=== PATIENT | female | born 1950 | race Caucasian/White ===

== ENCOUNTER 2017-09-26 21:40 | Emergency (ER) | payer MEDICARE ==
[2017-09-26] MEDS ORDERED: GLUCAGON,HUMAN RECOMBINANT 1 MG/ML VIAL. ×2 (21:50)
[2017-09-26] MEDS ORDERED: DEXTROSE 50% 25 GM / 50ML DISP.SYRIN. IV ×2 (21:51)
[2017-09-26 22:04] LABS: ADD MAN DIFF? NO
[2017-09-26 22:06] LABS: BASO % 0 % (0-3); EOS # 0.3 x10^3/uL (0.0-0.7); EOS % 3 % (0-3); HEMATOCRIT 40.9 % (36.0-47.0); HEMOGLOBIN 13.6 g/dL (12.0-15.5); LYMPH # 2.4 x10^3/uL (1.0-4.8); LYMPH % 22 % (24-48); MEAN CORPUSCULAR HEMOGLOBIN 30 pg (25-35); MEAN CORPUSCULAR HGB CONC 33 g/dL (31-37); MEAN CORPUSCULAR VOLUME 90 fL (79-100); MONO # 0.9 x10^3/uL (0.0-1.1); MONO % 8 % (0-9); NEUT # 7.2 x10^3uL (1.8-7.7); NEUT % 67 % (31-73); PLATELET COUNT 221 x10^3/uL (140-400); RED BLOOD COUNT 4.52 x10^6/uL (3.50-5.40); RED CELL DISTRIBUTION WIDTH 16.3 % (11.5-14.5); WHITE BLOOD COUNT 10.8 x10^3/uL (4.0-11.0)
[2017-09-26] MEDS: IV DEXTROSE 5% - 0.9 % NACL 1,000 ML IV ×2 (22:12)
[2017-09-26 22:15] LABS: ANION GAP 11 (6-14); BLOOD UREA NITROGEN 22 mg/dL (7-20); BUN/CREATININE RATIO 15 (6-20); CALCIUM 8.7 mg/dL (8.5-10.1); CARBON DIOXIDE 25 mmol/L (21-32); CHLORIDE 108 mmol/L (98-107); CREATININE 1.5 mg/dL (0.6-1.0); GFR 34.4; GLUCOSE 166 mg/dL (70-99); SODIUM 144 mmol/L (136-145)
[2017-09-26 22:20] LABS: ALBUMIN 2.5 g/dL (3.4-5.0); ALBUMIN/GLOBULIN RATIO 0.6 (1.0-1.7); ALK PHOS 100 U/L (46-116); ALT (SGPT) 26 U/L (14-59); AST (SGOT) 27 U/L (15-37); MAGNESIUM 2.3 mg/dL (1.8-2.4); TOTAL BILIRUBIN 0.2 mg/dL (0.2-1.0); TOTAL PROTEIN 6.4 g/dL (6.4-8.2)
[2017-09-26] MEDS: POTASSIUM CHLORIDE 20 MEQ TABLET.ER. PO ×2 (22:42)
[2017-09-26 22:48] LABS: POC GLUCOSE 189 mg/dL (70-99)
[2017-09-26 22:49] LABS: POC GLUCOSE 23 mg/dL (70-99)
== END 2017-09-26 23:19 | disposition home or self-care (01) ==
LOC: ER 21:40
DX: E11.649 Type 2 diabetes mellitus with hypoglycemia without coma (principal); R41.82 Altered mental status, unspecified; E87.6 Hypokalemia; I11.9 Hypertensive heart disease without heart failure; E78.00 Pure hypercholesterolemia, unspecified; Z95.1 Presence of aortocoronary bypass graft; Z98.51 Tubal ligation status
CPT/HCPCS: 36415; 80053; 82962; 83735; 85025; 96360; 99284-25; J7042

== ENCOUNTER → 2019-05-24 | Outpatient (CLI) | payer MEDICARE ==
[2017-09-26 22:40] VITALS: BP 189/90
[~2019-05-24] MED LIST: AMLO10TA8 PO; ASPI-482 PO; ATOR40TA59 PO; FURO-69 PO; INSU100I13 SQ; LISI-334 PO; METF500T16 PO; METO25TA2 PO; SITA100T PO
--- NOTE | 2019-05-24 08:55 | CARD ---
MR#: [id number] Date of Study: 05/24/2019 Ordering Physician: MIGUELINA POTTER, Referring Physician: MIGUELINA POTTER, Tech: Kaylin Aguirre PATY APPROVED REPORT EXAM: Two-dimensional and M-mode echocardiogram with Doppler and color Doppler. Other Information Quality : Technically LimitedHR: 63bpm Rhythm : BradycardiaTechnically limited study due to body habitus. INDICATION Congestive Heart Failure 2D DIMENSIONS RVDd3.3 (2.9-3.5cm)Left Atrium(2D)4.3 (1.6-4.0cm) IVSd1.2 (0.7-1.1cm)Aortic Root(2D)2.7 (2.0-3.7cm) LVDd4.9 (3.9-5.9cm)LVOT Diameter2.0 (1.8-2.4cm) PWd1.3 (0.7-1.1cm)LVDs3.4 (2.5-4.0cm) FS (%) 30.4 %SV65.9 ml LVEF(%)57.7 (>50%) Aortic Valve AoV Peak Kamlesh.147.2cm/sAoV VTI37.1cm AO Peak GR.8.7mmHgLVOT Peak Kamlesh.90.9cm/s AO Mean GR.4mmHgAVA (VMAX)1.97cm2 YIFAN (VTI)2.00cm2 Mitral Valve MV E Zdnfbckh71.3cm/sMV DECEL [id number] MV A Ladpyrdk91.2cm/sE/A Ratio1.1 Pulmonary Valve PV Peak Tqggjfcg258.4cm/s LEFT VENTRICLE The left ventricle is normal size. There is mild concentric left ventricular hypertrophy. The left ve ntricular systolic function is normal and the ejection fraction is within normal range. The Ejection Fraction is 55-60%. Septal motion suggestive of conduction defect. Otherwise, there is normal LV segm ental wall motion. Transmitral Doppler flow pattern is Grade II-pseudonormal filling dynamics. RIGHT VENTRICLE The right ventricle is normal size. There is normal right ventricular wall thickness. The right ventr icular systolic function is normal. ATRIA The left atrium is mildly dilated. The right atrium size is normal. The interatrial septum is intact with no evidence for an atrial septal defect or patent foramen ovale as noted on 2-D or Doppler imagi ng. AORTIC VALVE The aortic valve is thickened but opens well. The aortic valve is probably trileaflet. Doppler and Co mohit Flow revealed no significant aortic regurgitation. There is no significant aortic valvular stenos is. MITRAL VALVE The mitral valve is normal in structure and function. There is no evidence of mitral valve prolapse. There is no mitral valve stenosis. Doppler and Color-flow revealed trace mitral regurgitation. TRICUSPID VALVE The tricuspid valve is normal in structure and function. Doppler and Color Flow revealed no tricuspid valve regurgitation noted. There is no tricuspid valve prolapse or vegetation. There is no tricuspid valve stenosis. PULMONIC VALVE The pulmonic valve is not well visualized. GREAT VESSELS The aortic root is normal in size. The ascending aorta is normal in size. The IVC is normal in size a nd collapses >50% with inspiration. PERICARDIAL EFFUSION There is no evidence of significant pericardial effusion. Critical Notification Critical Value: No <Conclusion> There is mild concentric left ventricular hypertrophy. The left ventricular systolic function is normal and the ejection fraction is within normal range. Th e Ejection Fraction is 55-60%. Septal motion suggestive of conduction defect. Otherwise, there is normal LV segmental wall motion. Signed by : Luis Delacruz, Electronically Approved : 05/24/2019 08:54:31
== END | disposition home or self-care (01) ==
LOC: ECHO 07:40
PROVIDERS: ATTEND Internal Medicine
DX: I51.7 Cardiomegaly (principal)
CPT/HCPCS: 93306